=== PATIENT | male | born 1960 | race Caucasian/White ===

== ENCOUNTER 2024-02-07 07:47 | Outpatient (AMB) | payer OTHER, SELFPAY ==
--- NOTE | 2024-02-07 08:08 | MHC.OFFVIS ---
Intake Visit Reasons: Left hip pain Intake Note: James is a 63 year old male who presents with complaints of mild intermittent discomfort along the lateral aspect of his left hip. He did undergo left total replacement surgery several years ago. The patient states that he aggravated his left hip during the summer while preparing for his daughter's wedding, walking his dog, playing on a rope swing and putting in a new shed. The patient states that several weeks ago his pain was quite intense. He was seen in the [facility] Emergency room. He was given prednisone and Robaxin which gave him fairly good relief. The patient states that his symptoms have improved significantly with rest. He denies any fevers or chills. He denies any significant back pain. Allergies No Known Allergies Allergy (Verified 02/07/24 08:08) Medication List - Last Reconciled 02/07/24 by Hermilo Muñiz MD amlodipine 5 mg PO DAILY methocarbamol 750 mg PO Q6H PRN oxycodone-acetaminophen 10-325 mg 1 tab PO Q4-6H PRN sildenafil 50 mg PO Physical Exam Const Other: Well-nourished well-developed very friendly male awake alert and oriented x3 in no acute distress Extrem Other: Left hip examination shows that the surgical incision is well healed, no erythema, mild tenderness over his greater trochanteric bursa, no overlying skin lesions, minimal discomfort with full active range of motion when compared to his right hip Results Reviewed Results Reviewed: X-rays of the patient's left hip show a total hip arthroplasty in good position with no signs of loosening, no acute bony abnormalities Assessment & Plan Assessment & Plan (1) Left hip pain: Code(s): M25.552 - Pain in left hip Category: Medical Plan Mr. Castrejon presents with intermittent left hip discomfort most likely due to overuse and greater trochanteric bursitis. I had a lengthy discussion with the patient regarding the treatment options. At this point the patient's symptoms are tolerable to him. We will hold off on a cortisone injection. He will continue with his activity modifications. He does know to take antibiotics before any dental work. He will contact me prior to his annual follow-up appointment should any questions or concerns arise. Feel free to call me at any time should questions regarding his orthopedic management arise. I spent 22 minutes in reviewing the patient's records and imaging studies, seeing the patient and documenting in the medical record. Orders: Orders XR hip LT min 2V Today M25.552 - Pain in left hip Coding Level of Care Code Est Pt Level 3 (84710) Complex EM visit Add On G2211 Diagnoses Left hip pain M25.552
== END 2024-02-07 08:31 | disposition home or self-care (01) ==
PROVIDERS: PCP Nurse Practitioner; Visit Provider Orthopaedic Surgery
DX: M25.552 Pain in left hip (principal)
CPT/HCPCS: 99213; G2211

== ENCOUNTER 2024-02-07 11:59 | Outpatient (REF) | payer OTHER, SELFPAY ==
--- NOTE | ~2024-02-07 | XR_ITS ---
EXAMINATION: XR HIP LEFT 3 VIEWS CLINICAL INFORMATION: Pain in left hip M25.552. COMPARISON: None available TECHNIQUE: AP view of the pelvis and lateral view of the left hip FINDINGS: Left total hip arthroplasty with components in usual position no periprostatic fracture or suspicious area of lucency. A moderate osteoarthritis of the right hip with joint space narrowing subchondral cystic change. Pelvis is otherwise unremarkable. Proximal portion of the iliac wings are outside the [id number] exam. XR/XR hip LT min 2V IMPRESSION: 1. Left total hip arthroplasty without complication by x-ray. 2. Moderate osteoarthritis of the right hip. Electronically signed by: Billy Britt MD 04/10/2024 09:13 AM [facility]
== END 2024-02-07 12:00 | disposition home or self-care (01) ==
LOC: HO.HOSX 11:59
PROVIDERS: Visit Provider Orthopaedic Surgery
DX: M25.552 Pain in left hip (principal)
CPT/HCPCS: 73502